=== PATIENT | female | born 1995 | race Caucasian/White ===

== ENCOUNTER 2016-09-26 13:55 | Emergency (ER) | payer OTHER ==
[~2016-09-26] VITALS: Ht 175.3 cm; Wt 81.6 kg
[2016-09-26] MEDS ORDERED: ONDANSETRON 4MG/2ML VIAL (J2405) IV ONE (15:15)
[2016-09-26] MEDS ORDERED: KETOROLAC 30 MG/ML VIAL (J1885) IV ONE (15:15)
[2016-09-26] MEDS ORDERED: NS 1,000 ML IV ONE (15:15)
[2016-09-26 15:31] LABS: BASO % 0.3 % (0.0-1.0); EOS % 0.7 % (0.0-3.0); LARGE UNSTAINED CELL # 0.2 K/mm3 (0.0-0.4); LARGE UNSTAINED CELL % 2.1 % (0.0-4.0); LYMPH # 1.9 K/mm3 (1.5-6.5); LYMPH % 26.2 % (24.0-44.0); MEAN CORPUSCULAR HEMOGLOBIN 31.3 pg (27.0-33.0); MEAN CORPUSCULAR HGB CONC 34.1 g/dl (32.0-36.5); MEAN CORPUSCULAR VOLUME 91.9 fl (80.0-96.0); MONO # 0.4 K/mm3 (0.0-0.8); NEUTROPHILS # 4.9 K/mm3 (1.8-7.7); NEUTROPHILS % 65.7 % (36.0-66.0); PLATELET COUNT, AUTOMATED 333 k/mm3 (150-450); RED CELL DISTRIBUTION WIDTH 12.1 % (11.5-14.5); WHITE BLOOD COUNT 7.4 K/mm3 (4.0-10.0)
[2016-09-26 15:54] LABS: ALBUMIN 4.4 GM/DL (3.2-5.2); ALBUMIN/GLOBULIN RATIO 1.26 (1.00-1.93); ALKALINE PHOSPHATASE 80 U/L (45-117); ALT/SGPT 22 U/L (12-78); ANION GAP 7 MEQ/L (8-16); AST/SGOT 12 U/L (15-37); BILIRUBIN,TOTAL 1.5 MG/DL (0.2-1.0); BLOOD UREA NITROGEN 9 MG/DL (7-18); CALCIUM LEVEL 8.6 MG/DL (8.5-10.1); CARBON DIOXIDE LEVEL 26 MEQ/L (21-32); CHLORIDE LEVEL 107 MEQ/L (98-107); CREATININE FOR GFR 0.73 MG/DL (0.55-1.02); GLOMERULAR FILTRATION RATE > 60.0 (>60); GLUCOSE, FASTING 84 MG/DL (70-105); POTASSIUM SERUM 3.7 MEQ/L (3.5-5.1); SODIUM LEVEL 140 MEQ/L (136-145); TOTAL PROTEIN 7.9 GM/DL (6.4-8.2)
[2016-09-26] MEDS ORDERED: KETO10TAB PO (16:09)
[2016-09-26] MEDS ORDERED: PYRI200T5 PO (16:09)
[2016-09-26] MEDS ORDERED: BACT800T5 PO (16:09)
[2016-09-26] MEDS ORDERED: PERC5TAB6 PO (16:09)
[2016-09-26] MEDS ORDERED: PHENAZOPYRIDINE 100 MG TAB PO ONE (16:15)
[2016-09-26] MEDS ORDERED: BACTRIM 160MG/800MG DS TAB PO ONE (16:15)
[2016-09-26 16:21] VITALS: BP 117/69
--- NOTE | 2016-09-27 08:59 | REP ---
CT ABDOMEN: HISTORY: Flank pain. COMPARISON: None. The lung bases are clear. Limited evaluation of the solid intra-abdominal organs and gallbladder show no gross abnormalities. Limited evaluation of the pancreas, adrenal glands and kidneys show no gross abnormalities. There is no nephroureterolithiasis, hydronephrosis or hydroureter. There are no urinary bladder calcifications. There is no free fluid or free air in the abdomen or pelvis. There is no evidence of an intraabdominal or intrapelvic mass or adenopathy. The bowel loops and their mesenteries are unremarkable. Surgical clips are seen in the right lower quadrant from previous appendectomy. The osseous structures are within normal limits. IMPRESSION: Unremarkable exam. Signed by Tripp Alarcon DO 09/27/2016 09:58 A
== END 2016-09-26 16:25 | disposition home or self-care (01) ==
LOC: M ED 15:08
DX: N10 Acute pyelonephritis (principal); N39.0 Urinary tract infection, site not specified; Z88.0 Allergy status to penicillin; Z91.040 Latex allergy status
CPT/HCPCS: 74176; 80053; 81025; 83605; 85025; 87040; 87088; 87186; 96374; 96375; 99283; J1885; J2405

== ENCOUNTER → 2016-11-13 | Outpatient (REF) | payer OTHER ==
[~2016-11-13] MED LIST: BACT800T5 PO; KETO10TAB PO; PERC5TAB6 PO; PYRI200T5 PO
== END ==
LOC: M LAB REF 13:19
PROVIDERS: ATTEND Advanced Practice Midwife
DX: R30.0 Dysuria (principal)

== ENCOUNTER 2017-02-28 17:00 | Emergency (ER) | payer OTHER ==
[~2017-02-28] VITALS: Ht 175.3 cm; Wt 88.6 kg
[~2017-02-28 17:00] MED LIST changes: +PERC5TAB12 PO; -PERC5TAB6 PO; +PYRI1TAB5 PO; -PYRI200T5 PO
[2017-02-28] MEDS ORDERED: NEXP1IMP SC (17:22)
[2017-02-28] MEDS ORDERED: KETOROLAC 30 MG/ML VIAL (J1885) IV ONE (21:15)
[2017-02-28] MEDS ORDERED: METOCLOPRAMIDE INJ 10MG/2ML VIAL (J2765) IV ONE (21:15)
[2017-02-28] MEDS ORDERED: NS 1,000 ML IV ONE (21:15)
--- NOTE | 2017-02-28 22:20 | REPUSA ---
CT of the head Clinical history: Headache. Technique: Multiple axial CT images were obtained through the head without administration of contrast . Findings: The ventricles and sulci are symmetric bilaterally. There is no evidence of acute hemorrhag e or infarct. There is no midline shift, mass effect, or extra-axial fluid collection. The osseous st ructures are unremarkable. The visualized paranasal sinuses and mastoid air cells are clear. Impression: Negative study.
[2017-02-28 23:02] LABS: BASO # 0.1 10^3/uL (0.0-0.2); BASO % 0.6 % (0.0-1.0); EOS # 0.1 10^3/uL (0.0-0.50); EOS % 0.8 % (0.0-3.0); IMMATURE GRANULOCYTE % 0.3 % (0-0); LYMPH # 2.7 10^3/uL (1.5-6.5); LYMPH % 34.3 % (24.0-44.0); MEAN CORPUSCULAR HEMOGLOBIN 30.9 pg (27.0-33.0); MEAN CORPUSCULAR HGB CONC 34.6 g/dl (32.0-36.5); MEAN CORPUSCULAR VOLUME 89.3 fl (80.0-96.0); MONO # 0.6 10^3/uL (0.0-0.8); MONO % 7.6 % (0.0-5.0); NEUTROPHILS # 4.4 10^3/uL (1.8-7.7); NEUTROPHILS % 56.4 % (36.0-66.0); PLATELET COUNT, AUTOMATED 314 10^3/uL (150-450); RED CELL DISTRIBUTION WIDTH 11.7 % (11.5-14.5); WHITE BLOOD COUNT 7.7 10^3/uL (4.0-10.0)
[2017-02-28 23:19] LABS: ANION GAP 8 MEQ/L (8-16); BLOOD UREA NITROGEN 10 MG/DL (7-18); CALCIUM LEVEL 9.1 MG/DL (8.5-10.1); CARBON DIOXIDE LEVEL 26 MEQ/L (21-32); CHLORIDE LEVEL 105 MEQ/L (98-107); CREATININE FOR GFR 0.67 MG/DL (0.55-1.02); GLOMERULAR FILTRATION RATE > 60.0 (>60); GLUCOSE, FASTING 79 MG/DL (70-105); POTASSIUM SERUM 3.8 MEQ/L (3.5-5.1); SODIUM LEVEL 139 MEQ/L (136-145)
[2017-02-28] MEDS ORDERED: IBUP80TA PO (23:58)
[2017-02-28] MEDS ORDERED: ZOFR4TAB3 PO (23:58)
[2017-03-01] VITALS: BP 113/67
[2017-03-01 00:04] LABS: ERYTHROCYTE SEDIMENTATION RATE 3 mm/hr (0-20)
== END 2017-03-01 00:10 | disposition home or self-care (01) ==
LOC: M ED 17:00
DX: G43.909 Migraine, unspecified, not intractable, without status migrainosus (principal)
CPT/HCPCS: 70450; 80048; 85025; 85652; 86140; 96361; 96374; 96375; 99283; J1885; J2765

== ENCOUNTER → 2017-03-08 | Outpatient (CLI) | payer OTHER ==
[~2017-03-08] MED LIST changes: +IBUP80TA PO; +NEXP1IMP SC; +ZOFR4TAB3 PO
== END ==
LOC: M WUC 16:00
PROVIDERS: ATTEND Physician Assistant
DX: N39.0 Urinary tract infection, site not specified (principal)

== ENCOUNTER 2018-11-10 13:53 | Emergency (ER) | payer OTHER ==
[~2018-11-10] VITALS: Ht 175.3 cm; Wt 102.9 kg
[~2018-11-10 13:53] MED LIST changes: +ZOFR4TAB14 PO; -ZOFR4TAB3 PO
[2018-11-10] MEDS ORDERED: FLUTISP (14:00)
[2018-11-10 14:44] LABS: BASO % 0.5 % (0.0-1.0); EOS # 0.1 10^3/uL (0.0-0.50); EOS % 1.4 % (0.0-3.0); HEMATOCRIT 35.4 % (36.0-47.0); HEMOGLOBIN 12.2 g/dl (12.0-15.5); LYMPH # 2.3 10^3/uL (1.5-6.5); LYMPH % 26.1 % (24.0-44.0); MEAN CORPUSCULAR HEMOGLOBIN 30.7 pg (27.0-33.0); MEAN CORPUSCULAR HGB CONC 34.5 g/dl (32.0-36.5); MEAN CORPUSCULAR VOLUME 88.9 fl (80.0-96.0); MONO # 0.9 10^3/uL (0.0-0.8); MONO % 10.1 % (0.0-5.0); NEUTROPHILS # 5.3 10^3/uL (1.8-7.7); NEUTROPHILS % 61.7 % (36.0-66.0); PLATELET COUNT, AUTOMATED 317 10^3/uL (150-450); RED BLOOD COUNT 3.98 10^6/uL (4.00-5.40); WHITE BLOOD COUNT 8.6 10^3/uL (4.0-10.0)
[2018-11-10 15:07] LABS: HCG, SERUM QUALITATIVE NEGATIVE (NEGATIVE)
[2018-11-10] MEDS ORDERED: NAPR-837 PO (16:50)
[2018-11-10 17:13] VITALS: BP 140/79
== END 2018-11-10 17:13 | disposition home or self-care (01) ==
LOC: M ED 13:53
DX: G89.29 Other chronic pain (principal); R10.2 Pelvic and perineal pain; N93.8 Other specified abnormal uterine and vaginal bleeding; M54.9 Dorsalgia, unspecified; Z79.899 Other long term (current) drug therapy; Z88.0 Allergy status to penicillin; Z91.040 Latex allergy status